=== PATIENT | female | born 1990 | race African-American/Black ===

== ENCOUNTER 2017-09-07 16:45 | Inpatient (IN) ==
[~2017-09-07 16:45] MED LIST: ONDANSETRON 4 MG/2 ML VIAL IV PRN
[2017-09-07] MEDS ORDERED: MEPERIDINE 50 MG/1 ML VIAL ONE (16:54)
[2017-09-07] MEDS ORDERED: ONDANSETRON 4 MG/2 ML VIAL ONE (16:54)
[2017-09-07] MEDS: MEPERIDINE 50 MG/1 ML VIAL IV PRN ×2 (16:55→23:14)
[2017-09-07] MEDS: LACTATED RINGERS 1,000 ML IV SCH (23:45)
[2017-09-08] MEDS ORDERED: OXYTOCIN/LR 20 UNIT/1,000 ML BAG IV SCH (00:30)
[2017-09-08 01:09] LABS: Basophils % 0.3 % (0.0-0.8); Eosinophils % 0.3 % (0.00-10.9); Hematocrit 28.4 VOL% (35.7-47.0); Hemoglobin 10.1 GM/DL (12.0-16.0); Immature Granulocytes % 0.8 %; Immature Granulocytes Absolute 0.07 #; Lymphocytes # 1.6 10*3/uL (1.4-4.0); Lymphocytes % 17.1 % (21.3-54.2); Mean Corpuscular HGB Conc 35.6 GM/DL (32-36); Mean Corpuscular Hemoglobin 32 PG (27-34); Mean Corpuscular Volume 90.4 FL (87-102); Mean Platelet Volume 10.7 FL (9.6-12.0); Monocytes # 0.8 10*3/uL (0.11-0.8); Monocytes % 8.8 % (1.7-12.7); Neutrophils # 6.8 10*3/uL (1.4-7.4); Neutrophils % 72.7 % (38.7-73.9); Platelet Count 205 T/CUMM (130-400); Red Blood Count 3.14 MC/CUMM (3.8-5.5); Red Cell Distribution Width 13.1 % (9.3-17.3); White Blood Count 9.3 T/CUMM (4-12)
[2017-09-08] MEDS ORDERED: ePHEDrine 50 MG/ML AMP IV PRN (01:45)
[2017-09-08] MEDS ORDERED: hydrOXYzine HCL 25 MG/1 ML VIAL IM PRN (01:45)
[2017-09-08] MEDS ORDERED: PROMETHAZINE 25 MG/1 ML VIAL IM ONE (01:45)
[2017-09-08] MEDS ORDERED: diphenhydrAMINE 50 MG/1 ML VIAL IV PRN ×2 (01:45)
[2017-09-08] MEDS ORDERED: CITRIC ACID/SODIUM CITRATE 30 ML UDCUP PO ONE (01:47)
[2017-09-08] MEDS ORDERED: FAMOTIDINE 20 MG/2 ML VIAL IV ONE (01:47)
[2017-09-08] MEDS ORDERED: fentaNYL 2 MCG/ROPIV 0.2% EPID 0 ML EPIDURAL ONE (01:54)
[2017-09-08] MEDS: LACTATED RINGERS 1,000 ML IV SCH (02:01)
[2017-09-08] MEDS: MEPERIDINE 50 MG/1 ML VIAL IV PRN (02:16)
[2017-09-08] MEDS ORDERED: NALOXONE 0.4 MG/ML VIAL IV PRN (03:22)
[2017-09-08] MEDS ORDERED: HYDROmorphone PCA 30 MG/30 ML SYRINGE IV SCH (03:30)
[2017-09-08] MEDS ORDERED: HYDROCORTISONE 2.5% RECTAL CREAM 30 GM TUBE TOP PRN (05:23)
[2017-09-08] MEDS ORDERED: BISACODYL 10 MG SUPP RECTAL PRN (05:23)
[2017-09-08] MEDS ORDERED: DIPH/TET/ACEL PERT BOOSTER VACCINE 0.5 ML VIAL IM ONE (05:23)
[2017-09-08] MEDS ORDERED: oxyCODONE/ACETAMINOPHEN 5-325 MG TABLET PO PRN (05:23)
[2017-09-08] MEDS ORDERED: IBUPROFEN 800 MG TABLET PO PRN (05:23)
[2017-09-08] MEDS ORDERED: ONDANSETRON 4 MG/2 ML VIAL IV PRN (05:23)
[2017-09-08] MEDS ORDERED: OXYTOCIN/LR 20 UNIT/1,000 ML BAG IV ONE (05:23)
[2017-09-08] MEDS ORDERED: LANOLIN 50% CREAM 0.3 OZ TUBE TOP PRN (05:23)
[2017-09-08] MEDS ORDERED: RHO(D) IMMUNE GLOBULIN 300 MCG SYRINGE IM ONE (05:23)
[2017-09-08] MEDS ORDERED: BENZOCAINE 20%/MENTHOL 0.5% SPRAY 56 GM CAN TOP PRN (05:23)
[2017-09-08] MEDS ORDERED: WITCH HAZEL PADS 100/JAR TOP PRN (05:23)
[2017-09-08] MEDS ORDERED: MEASLES/MUMPS/RUBELLA VACCINE 0.5 ML VIAL SUBCUT ONE (05:23)
[2017-09-08] MEDS ORDERED: ACETAMINOPHEN 325 MG TABLET PO PRN (05:23)
[2017-09-08 05:33] LABS: Apearance,Urine CLEAR (Clear); Bilirubin,Urine Negative (Negative); Blood, Urine Small mg/dL (Negative); Glucose,Urine (UA) Negative (Negative); Ketones,Urine 5 mg/dL (Negative); Mucus,Urine Occasional /LPF (Occasional); Nitrite,Urine Negative (Negative); Protein,Urine Negative; RBC,Urine 1 /HPF (0-4); Squamous Epithelial Cell,Urine Occasional /HPF (0-10); Urine Color Yellow (Yellow); Urine Specific Gravity 1.006 (1.001-1.035); WBC,Urine 1 /HPF (0-6)
[2017-09-08] MEDS: DOCUSATE SODIUM 100 MG CAPSULE PO SCH ×2 (09:30→20:03)
[2017-09-08] MEDS: oxyCODONE/ACETAMINOPHEN 5-325 MG TABLET PO PRN ×2 (10:54→20:03)
[2017-09-08] MEDS: ENOXAPARIN 40 MG/0.4 ML SYRINGE SUBCUT SCH (13:48)
[2017-09-09] MEDS: oxyCODONE/ACETAMINOPHEN 5-325 MG TABLET PO PRN (03:47)
[2017-09-09 05:03] LABS: Basophils % 0.4 % (0.0-0.8); Eosinophils # 0.1 10*3/uL (0.0-0.87); Eosinophils % 0.7 % (0.00-10.9); Hematocrit 27.3 VOL% (35.7-47.0); Hemoglobin 9.4 GM/DL (12.0-16.0); Immature Granulocytes % 0.6 %; Immature Granulocytes Absolute 0.05 #; Lymphocytes # 2.6 10*3/uL (1.4-4.0); Lymphocytes % 31.5 % (21.3-54.2); Mean Corpuscular HGB Conc 34.4 GM/DL (32-36); Mean Corpuscular Hemoglobin 32 PG (27-34); Mean Corpuscular Volume 92.9 FL (87-102); Mean Platelet Volume 10.3 FL (9.6-12.0); Monocytes # 0.6 10*3/uL (0.11-0.8); Monocytes % 7.1 % (1.7-12.7); Neutrophils # 4.9 10*3/uL (1.4-7.4); Neutrophils % 59.7 % (38.7-73.9); Platelet Count 189 T/CUMM (130-400); Red Blood Count 2.94 MC/CUMM (3.8-5.5); Red Cell Distribution Width 13.1 % (9.3-17.3); White Blood Count 8.3 T/CUMM (4-12)
[2017-09-09] MEDS ORDERED: ceFAZolin 1,000 MG in SYRINGE 1 EACH IV ONE (06:30)
[2017-09-09] MEDS ORDERED: MORPHINE 2 MG/1 ML SYRINGE IV PRN (07:31)
[2017-09-09] MEDS ORDERED: LACTATED RINGERS 1,000 ML IV SCH (09:00)
[2017-09-09] MEDS ORDERED: ROPIVACAINE 0.5% 30 ML VIAL ONE ×2 (09:03→09:05)
[2017-09-09] MEDS ORDERED: LIDOCAINE 50 MG/5 ML SYRINGE ONE (09:05)
[2017-09-09] MEDS ORDERED: PROPOFOL 200 MG/20 ML VIAL IV ONE (09:31)
[2017-09-09] MEDS ORDERED: ONDANSETRON 4 MG/2 ML VIAL ONE (09:32)
[2017-09-09] MEDS ORDERED: fentaNYL 100 MCG/2 ML VIAL ONE (09:32)
[2017-09-09] MEDS ORDERED: DEXAMETHASONE 10 MG/1 ML VIAL ONE (09:32)
[2017-09-09] MEDS ORDERED: KETOROLAC 30 MG/1 ML VIAL ONE (09:32)
[2017-09-09] MEDS ORDERED: SEVOFLURANE 1 UNIT/15 MINUTE INH ONE (09:32)
[2017-09-09] MEDS ORDERED: MIDAZOLAM 2 MG/2 ML VIAL ONE (09:32)
[2017-09-09] MEDS ORDERED: SUCCINYLCHOLINE 200 MG/10 ML VIAL ONE (09:33)
[2017-09-09] MEDS ORDERED: ACETAMINOPHEN 1,000 MG/100 ML VIAL IV ONE (09:33)
[2017-09-09] MEDS ORDERED: ceFAZolin 1,000 MG in SYRINGE 1 EACH IV SCH (13:00)
[2017-09-09] MEDS: DOCUSATE SODIUM 100 MG CAPSULE PO SCH ×2 (15:06→21:29)
[2017-09-09] MEDS: ceFAZolin 1,000 MG in SYRINGE 1 EACH IV SCH ×2 (16:00→23:58)
[2017-09-09] MEDS: ENOXAPARIN 40 MG/0.4 ML SYRINGE SUBCUT SCH (19:10)
[2017-09-09] MEDS ORDERED: MAGNESIUM HYDROXIDE SUSP 30 ML UDCUP PO PRN (23:52)
[2017-09-10] MEDS: oxyCODONE/ACETAMINOPHEN 5-325 MG TABLET PO PRN (04:37)
[2017-09-10] MEDS: ceFAZolin 1,000 MG in SYRINGE 1 EACH IV SCH (09:00)
[2017-09-10] MEDS: DOCUSATE SODIUM 100 MG CAPSULE PO SCH (09:06)
[2017-09-10] MEDS: ENOXAPARIN 40 MG/0.4 ML SYRINGE SUBCUT SCH (09:06)
[2017-09-10 10:08] VITALS: BP 105/56
== END 2017-09-10 14:20 | disposition home or self-care (01) | DRG 560 ==
LOC: N.LDOUT 16:45 → N.LD 17:35 → N.OB 09-08 05:05
PROVIDERS: ADMIT Obstetrics & Gynecology; ATTEND Obstetrics & Gynecology

== ENCOUNTER 2022-07-14 13:12 | Inpatient (IN) ==
[2022-07-14] MEDS ORDERED: OXYTOCIN/LR 20 UNIT/1,000 ML BAG IV ONE ×2 (13:20→21:03)
[2022-07-14] MEDS ORDERED: METHYLERGONOVINE 0.2 MG/1 ML AMP IM PRN (13:20)
[2022-07-14] MEDS ORDERED: miSOPROStoL 200 MCG TABLET RECTAL PRN (13:20)
[2022-07-14] MEDS ORDERED: ceFAZolin 3,000 MG in SYRINGE 1 EACH IV ONE ×2 (13:20→13:30)
[2022-07-14] MEDS ORDERED: FAMOTIDINE 20 MG/2 ML VIAL IV ONE (13:20)
[2022-07-14] MEDS ORDERED: TRANEXAMIC ACID 1,000 MG in SODIUM CHLORIDE 0.9% 100 ML IV PRN (13:20)
[2022-07-14] MEDS ORDERED: CITRIC ACID/SODIUM CITRATE 30 ML UDCUP PO ONE (13:20)
[2022-07-14] MEDS ORDERED: CARBOPROST TROMETHAMINE 250 MCG/ML AMP IM PRN (13:20)
[2022-07-14] MEDS ORDERED: OXYTOCIN/LR 30 UNIT/1,000 ML BAG IV ONE (13:22)
[2022-07-14] MEDS ORDERED: LACTATED RINGERS 1,000 ML IV ONE (13:22)
[2022-07-14 13:47] LABS: Basophils % 0.3 % (0.0-0.8); Eosinophils % 0.3 % (0.00-10.9); Hematocrit 32.7 VOL% (35.7-47.0); Hemoglobin 11.7 GM/DL (12.0-16.0); Immature Granulocytes % 0.9 %; Immature Granulocytes Absolute 0.06 #; Lymphocytes # 1.7 10*3/uL (1.4-4.0); Lymphocytes % 26.9 % (21.3-54.2); Mean Corpuscular HGB Conc 35.8 GM/DL (32-36); Mean Corpuscular Volume 92.4 FL (87-102); Monocytes # 0.5 10*3/uL (0.11-0.8); Neutrophils % 63.6 % (38.7-73.9); Platelet Count 226 T/CUMM (130-400); Red Blood Count 3.54 MC/CUMM (3.8-5.5); Red Cell Distribution Width 13.2 % (9.3-17.3); White Blood Count 6.5 T/CUMM (4-12)
[2022-07-14] MEDS ORDERED: buprenorphine HCL 0.3 MG/ML VIAL ONE (13:52)
[2022-07-14] MEDS ORDERED: PHENYLEPHRINE 1 MG/10 ML SYRINGE IV ONE (13:52)
[2022-07-14] MEDS ORDERED: ONDANSETRON 4 MG/2 ML VIAL ONE (13:52)
[2022-07-14] MEDS ORDERED: BUPIVACAINE SPINAL 0.75% 2 ML AMP SPINAL ONE (13:52)
[2022-07-14] MEDS: LACTATED RINGERS 1,000 ML IV SCH ×3 (13:59→21:49)
[2022-07-14 14:00] LABS: INR 0.9; PT Patient Result 9.8 SECS (10.1-12.1); Partial Thromboplastin Time 26.8 SECS (23.7-32.9)
[2022-07-14 14:16] LABS: Bilirubin,Direct 0.14 MG/DL (0.0-0.20); Uric Acid 3.2 MG/DL (2.6-6.0)
[2022-07-14 14:19] LABS: Albumin 2.8 G/DL (3.4-5.0); Bilirubin,Total 0.5 MG/DL (0.20-1.00); Calcium 8.5 MG/DL (8.5-10.1); Osmolality,Calculated 273.4 MOS/KG (273-304); Potassium 3.4 MMOL/L (3.5-5.1); Total Protein 6.7 G/DL (6.4-8.2)
[2022-07-14] MEDS ORDERED: OXYTOCIN 10 UNIT/ML VIAL IM ONE (14:21)
[2022-07-14] MEDS ORDERED: TRANEXAMIC ACID 1,000 MG/10 ML VIAL ONE (14:32)
[2022-07-14] MEDS ORDERED: SODIUM CHLORIDE 0.9% 0 ML IV ONE (14:32)
[2022-07-14] MEDS ORDERED: miSOPROStoL 200 MCG TABLET ONE (14:32)
[2022-07-14] MEDS ORDERED: CARBOPROST TROMETHAMINE 250 MCG/ML AMP IM ONE (14:32)
[2022-07-14] MEDS ORDERED: ACETAMINOPHEN INJ 1,000 MG/100 ML VIAL IV ONE (15:41)
[2022-07-14] MEDS ORDERED: KETOROLAC 30 MG/1 ML VIAL ONE (15:41)
[2022-07-14] MEDS ORDERED: MIDAZOLAM 2 MG/2 ML VIAL ONE (15:44)
[2022-07-14 15:45] LABS: Cord Arterial Blood HCO3 21.5 MMOL/L
[2022-07-14 15:50] LABS: Cord Venous Blood HCO3 21.8 MMOL/L; Cord Venous Blood PCO2 39.3 MMHG; Cord Venous Blood PO2 42.1
[2022-07-14 15:52] LABS: Bacteria,Urine Occasional /HPF (Few); Bilirubin,Urine Negative (Negative); Blood, Urine Small mg/dL (Negative); Glucose,Urine (UA) Negative (Negative); Ketones,Urine 20 mg/dL (Negative); Mucus,Urine Occasional /LPF (Occasional); Nitrite,Urine Positive (Negative); Protein,Urine Negative (Negative); RBC,Urine 2 /HPF (0-4); Squamous Epithelial Cell,Urine Occasional /HPF (0-10); Urine Appearance Slightly Hazy (Clear); Urine Color Yellow (Yellow); Urine Specific Gravity 1.008 (1.001-1.035); Urine Urobilinogen < 2.0 eU/dL (<2.0)
[2022-07-14 15:53] LABS: Cord Arterial Blood HCO3 20.6 MMOL/L
[2022-07-14 15:56] LABS: Cord Venous Blood HCO3 21.7 MMOL/L; Cord Venous Blood PCO2 44.2 MMHG; Cord Venous Blood PO2 28.4
[2022-07-14] MEDS ORDERED: ONDANSETRON 4 MG/2 ML VIAL IV ONE (19:35)
[2022-07-14 19:52] LABS: Protein/Creatinine Ratio,Urine 0.4 RATIO
[2022-07-14] MEDS: DOCUSATE SODIUM 100 MG CAPSULE PO SCH (21:00)
[2022-07-14] MEDS ORDERED: ONDANSETRON 4 MG/2 ML VIAL IV PRN (21:03)
[2022-07-14] MEDS ORDERED: RHO(D) IMMUNE GLOBULIN 300 MCG SYRINGE IM ONE (21:03)
[2022-07-14] MEDS ORDERED: SIMETHICONE CHEW 80 MG TABLET PO PRN (21:03)
[2022-07-14] MEDS ORDERED: ACETAMINOPHEN 325 MG TABLET PO PRN (21:03)
[2022-07-14] MEDS: KETOROLAC 30 MG/1 ML VIAL IV SCH (21:58)
[2022-07-14] MEDS: ACETAMINOPHEN 500 MG TABLET PO SCH (22:05)
[2022-07-15] MEDS ORDERED: KETOROLAC 30 MG/1 ML VIAL IV SCH
[2022-07-15] MEDS ORDERED: ACETAMINOPHEN 500 MG TABLET PO SCH
[2022-07-15 00:41] LABS: Basophils % 0.1 % (0.0-0.8); Hematocrit 22.7 VOL% (35.7-47.0); Hemoglobin 8.1 GM/DL (12.0-16.0); Immature Granulocytes % 1.8 %; Immature Granulocytes Absolute 0.26 #; Lymphocytes # 1.2 10*3/uL (1.4-4.0); Lymphocytes % 8.6 % (21.3-54.2); Mean Corpuscular HGB Conc 35.7 GM/DL (32-36); Mean Platelet Volume 10.5 FL (9.6-12.0); Monocytes # 0.7 10*3/uL (0.11-0.8); Monocytes % 4.7 % (1.7-12.7); Neutrophils % 84.8 % (38.7-73.9); Platelet Count 241 T/CUMM (130-400); Red Blood Count 2.39 MC/CUMM (3.8-5.5); Red Cell Distribution Width 13.2 % (9.3-17.3); White Blood Count 14.4 T/CUMM (4-12)
[2022-07-15] MEDS: LACTATED RINGERS 1,000 ML IV SCH ×2 (03:39→05:32)
[2022-07-15] MEDS: KETOROLAC 30 MG/1 ML VIAL IV SCH ×2 (04:20→09:13)
[2022-07-15] MEDS: ACETAMINOPHEN 500 MG TABLET PO SCH (05:13)
[2022-07-15 06:37] LABS: Basophils % 0.2 % (0.0-0.8); Hematocrit 18.6 VOL% (35.7-47.0); Immature Granulocytes % 1.2 %; Immature Granulocytes Absolute 0.16 #; Lymphocytes # 1.6 10*3/uL (1.4-4.0); Lymphocytes % 11.9 % (21.3-54.2); Mean Corpuscular HGB Conc 34.4 GM/DL (32-36); Mean Corpuscular Volume 94.4 FL (87-102); Mean Platelet Volume 9.9 FL (9.6-12.0); Monocytes % 7.8 % (1.7-12.7); Neutrophils % 78.9 % (38.7-73.9); Platelet Count 202 T/CUMM (130-400); Red Blood Count 1.97 MC/CUMM (3.8-5.5); Red Cell Distribution Width 13.7 % (9.3-17.3); White Blood Count 13.2 T/CUMM (4-12)
[2022-07-15 06:43] LABS: Hemoglobin 6.4 GM/DL (12.0-16.0)
[2022-07-15] MEDS ORDERED: SODIUM CHLORIDE 0.9% 1,000 ML IV PRN (06:55)
[2022-07-15] MEDS: MULTIVITAMIN (PRENATAL) TABLET PO SCH (09:15)
[2022-07-15] MEDS: METOCLOPRAMIDE 10 MG TABLET PO SCH ×2 (09:15→16:04)
[2022-07-15] MEDS: DOCUSATE SODIUM 100 MG CAPSULE PO SCH ×2 (09:15→21:45)
[2022-07-15 15:10] LABS: Hematocrit 22.3 VOL% (35.7-47.0); Hemoglobin 7.9 GM/DL (12.0-16.0)
[2022-07-15] MEDS: FERROUS SULFATE 325 MG TABLET PO SCH (21:45)
[2022-07-15] MEDS: MAGNESIUM HYDROXIDE SUSP 30 ML UDCUP PO PRN (21:45)
[2022-07-16] MEDS: METOCLOPRAMIDE 10 MG TABLET PO SCH ×3 (01:17→17:10)
[2022-07-16 05:48] LABS: Hematocrit 18.4 VOL% (35.7-47.0)
[2022-07-16 05:50] LABS: Hemoglobin 6.3 GM/DL (12.0-16.0)
[2022-07-16] MEDS ORDERED: SODIUM CHLORIDE 0.9% 1,000 ML IV PRN (06:37)
[2022-07-16] MEDS: FERROUS SULFATE 325 MG TABLET PO SCH ×2 (09:37→21:58)
[2022-07-16] MEDS: DOCUSATE SODIUM 100 MG CAPSULE PO SCH ×2 (09:37→21:59)
[2022-07-16] MEDS: MULTIVITAMIN (PRENATAL) TABLET PO SCH (09:37)
[2022-07-16] MEDS: MAGNESIUM HYDROXIDE SUSP 30 ML UDCUP PO PRN (09:38)
[2022-07-16] MEDS: IBUPROFEN 800 MG TABLET PO PRN (09:38)
[2022-07-16 19:14] LABS: Basophils % 0.3 % (0.0-0.8); Eosinophils # 0.1 10*3/uL (0.0-0.87); Eosinophils % 0.5 % (0.00-10.9); Hematocrit 24.6 VOL% (35.7-47.0); Hemoglobin 8.4 GM/DL (12.0-16.0); Immature Granulocytes % 1.4 %; Immature Granulocytes Absolute 0.15 #; Lymphocytes # 2.3 10*3/uL (1.4-4.0); Lymphocytes % 21.3 % (21.3-54.2); Mean Corpuscular HGB Conc 34.1 GM/DL (32-36); Mean Corpuscular Volume 94.3 FL (87-102); Mean Platelet Volume 9.9 FL (9.6-12.0); Monocytes % 9.3 % (1.7-12.7); NRBC # 0.02 10*3/uL; Neutrophils % 67.2 % (38.7-73.9); Platelet Count 185 T/CUMM (130-400); Red Blood Count 2.61 MC/CUMM (3.8-5.5); Red Cell Distribution Width 14.4 % (9.3-17.3)
[2022-07-17] MEDS: IBUPROFEN 800 MG TABLET PO PRN (00:37)
[2022-07-17] MEDS: METOCLOPRAMIDE 10 MG TABLET PO SCH (02:20)
[2022-07-17] MEDS: FERROUS SULFATE 325 MG TABLET PO SCH (11:13)
[2022-07-17] MEDS: DOCUSATE SODIUM 100 MG CAPSULE PO SCH (11:14)
[2022-07-17] MEDS: MULTIVITAMIN (PRENATAL) TABLET PO SCH (11:14)
[2022-07-17 13:43] VITALS: BP 138/93
== END 2022-07-17 15:10 | disposition home or self-care (01) | DRG 788 ==
LOC: N.LDOUT 13:12 → N.LD 13:14 → N.OB 20:40
PROVIDERS: ADMIT Obstetrics & Gynecology; ATTEND Obstetrics & Gynecology
PROC: LDCSECT (ICD-10-PCS; 2022-07-14 15:00)